=== PATIENT | male | born 1995 | race Caucasian/White ===

== ENCOUNTER 2017-11-26 14:49 | Inpatient (IN) | payer MEDICAID ==
[2017-11-26 14:57] VITALS: BMI 25.8
[2017-11-26] MEDS ORDERED: Sodium Chloride 0.9% 1,000 ML IV STA (15:52)
[2017-11-26] MEDS ORDERED: Morphine 4 MG/ML VIAL IVP STA (16:07)
--- NOTE | 2017-11-26 16:09 | ED PDOC ---
HPI: Abdomen Chief Complaint (Provider): abdominal pain History Per: Patient Onset/Duration Of Symptoms: Days Outside of [place] travel?: No Current Symptoms Are (Timing): Still Present Context: Food Severity: Severe Pain Scale Rating Of: 10 Location Of Pain/Discomfort: Diffuse, RUQ, Epigastric Quality Of Discomfort: Sharp Associated Symptoms: Diarrhea. denies: Fever, Chills, Nausea, Vomiting Exacerbating Factors: Movement Alleviating Factors: None <Elizabeth Redman - Last Filed: 11/26/17 19:45> <Smiley Mclaughlin - Last Filed: 11/27/17 15:47> Time Seen by Provider: 11/26/17 15:17 Chief Complaint (Nursing): Abdominal Pain Additional Complaint(s): 22 yo M with pmh migraines presented to ED with complaint of abdominal pain x2 days. Describes the pain as sharp/stabbing, and rates it 10/10. Pain starts in epigastric area and radiates to RUQ and down to umbilicus; has pain in LLQ and RLQ as well but milder. Pt states pain started after he ate greasy food and drank 1 [employer] Hard Lemonade 2 days ago; has history of abdominal pain with greasy foods but it is usually self limiting. Denies alcohol abuse; states he only drinks oscar[employer] hard lemonade, and a 6 pack lasts him 2-3 weeks. Denies nausea, vomiting, chills, fever. ROS positive for diarrhea- pt reports 3 weeks of 5 watery stools/day. No recent antibiotic use, no recent travel. 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; wisdom teeth; tonsillectomy Social hx: denies tobacco and any drug use; alcohol use as above Fam hx: noncontributory Meds: no chronic medications Allergies: nkda (Elizabeth Redman) Supervising Attending Note <Elizabeth Redman - Last Filed: 11/26/17 19:45> - Supervising Attending Note The Documented history was done by the: Physician Retail Store Clerk, Attending Physician The documented physical exam was done by the: Physician Retail Store Clerk, Attending Physician - Attestation: I have personally seen and examined this patient.: Yes I have fully participated in the care of the patient.: Yes I have reviewed all pertinent clinical information: Yes <Smiley Mclaughlin - Last Filed: 11/27/17 15:47> - Notes: Notes:: Abd pain localized from upper abdomen to lower abdomen with obturator, psoas signs. Neg rebound. CT demonstrated appendicitis. IV antibiotics ordered. JOEY Shen Surgery. JOEY pt findings and plan of care. Hospitalize for surgical intervention. (Smiley Mclaughlin) Past Medical History Reviewed: Nursing Documentation, Vital Signs - Medical History PMH: Asthma, Migraine - Surgical History Surgical History: Tonsillectomy Other surgeries: wisdom teeth; bone surg on L hand - Family History Family History: States: Unknown Family Hx - Living Arrangements Living Arrangements: With Family - Social History Alcohol: < 2 Drinks/Day Drugs: Denies <Elizabeth Redman - Last Filed: 11/26/17 19:45> <Smiley Mclaughlin - Last Filed: 11/27/17 15:47> Vital Signs: Last Vital Signs Temp 98.2 F 11/27/17 08:26 Pulse 62 11/27/17 08:26 Resp 19 11/27/17 08:26 BP 110/71 11/27/17 08:26 Pulse Ox 99 11/27/17 08:26 - Home Medications Home Medications: Ambulatory Orders Medication Instructions Recorded Amoxicillin/Clavulanate [Augmentin 1 tab PO DAILY #7 tab 11/27/17 500 MG-125 MG] oxyCODONE/Acetaminophen [Percocet 1 tab PO Q4 PRN #30 tab 11/27/17 5/325 mg Tab] - Allergies Allergies/Adverse Reactions: Allergies Allergy/AdvReac Type Severity Reaction Status Date / Time No Known Allergies Allergy Verified 12/16/15 18:50 Review of Systems ROS Statement: Except As Marked, All Systems Reviewed And Found Negative Gastrointestinal: Positive for: Abdominal Pain, Diarrhea <Elizabeth Redman - Last Filed: 11/26/17 19:45> Physical Exam - Physical Exam Appears: Positive for: Uncomfortable Head Exam: Positive for: ATRAUMATIC Skin: Positive for: Normal Color, Warm, Dry Eye Exam: Positive for: EOMI, PERRL ENT: Positive for: Pharynx Is (clear). Negative for: Tonsillar Exudate Neck: Positive for: Supple Cardiovascular/Chest: Positive for: Regular Rate, Rhythm, Chest Non Tender Respiratory: Positive for: Normal Breath Sounds. Negative for: Accessory Muscle Use, Respiratory Distress Gastrointestinal/Abdominal: Positive for: Bowel Sounds, Soft, Tenderness ( epigastric, RUQ), Guarding Extremity: Positive for: Capillary Refill (less than 2 sec). Negative for: Pedal Edema, Deformity Neurologic/Psych: Positive for: Alert, Oriented <Elizabeth Redman - Last Filed: 11/26/17 19:45> - Laboratory Results Result Diagrams: 11/26/17 16:15 11/26/17 16:15 - ECG O2 Sat by Pulse Oximetry: 99 <Elizabeth Redman - Last Filed: 11/26/17 19:45> - Laboratory Results Result Diagrams: 11/27/17 06:00 11/26/17 16:15 <Smiley Mclaughlin - Last Filed: 11/27/17 15:47> Medical Decision Making <Elizabeth Redman - Last Filed: 11/26/17 19:45> <Smiley Mclaughlin - Last Filed: 11/27/17 15:47> Medical Decision Making: differential includes cholecystitis, appendicitis, pancreatitis, gastritis - CBC - CMP - PT/PTT/INR - Lipase - LDH - IV NS bolus - Urine drug screen - Toradol IV - CT abdomen w/ IV contrast When pt was evaluated by Dr. Mclaughlin after he went to bathroom to give urine sample, he complained that the pain was now more in the RLQ than epigastric. Had positive obturator and psoas signs. - Morphine ordered for pain. CT abdomen consistent with appendicitis without rupture. - Surgery consult - Dr. Shen. - Zosyn started and blood culture ordered. (Elizabeth Redman) Disposition - Patient ED Disposition Is Patient to be Admitted: Yes - Disposition Disposition Time: 18:47 - Pt Status Changed To: Hospital Disposition Of: Inpatient - Admit Certification Admit to Inpatient:: After my assessment, the patient will require hospitalization for at least two midnights. This is because of the severity of symptoms shown, intensity of services needed, and/or the medical risk in this patient being treated as an outpatient. <Elizabeth Redman - Last Filed: 11/26/17 19:45> <Smiley Mclaughlin - Last Filed: 11/27/17 15:47> - Clinical Impression Clinical Impression: Acute appendicitis - Disposition Condition: STABLE
[2017-11-26 16:24] LABS: BASO # 0.1 K/uL (0.0-0.2); BASO % 0.4 % (0.0-2.0); EOS # 0.2 K/uL (0.0-0.7); EOS % 1.4 % (0.0-4.0); HEMOGLOBIN 14.5 g/dL (12.0-18.0); LYMPH # 2.3 K/uL (1.0-4.3); LYMPH % 17.3 % (20.0-40.0); MEAN CELL VOLUME 86.6 fl (80.0-94.0); MEAN CORPUSCULAR HEMOGLOBIN 29.4 pg (27.0-31.0); MEAN PLATELET VOLUME 8.3 fl (7.2-11.7); MONO # 1.1 K/uL (0.0-0.8); NEUT # 9.8 K/uL (1.8-7.0); NEUT % 72.9 % (50.0-75.0); RBC 4.92 Mil/uL (4.40-5.90); RED CELL DISTRIBUTION WIDTH 12.5 % (11.5-14.5); WHITE BLOOD COUNT 13.5 K/uL (4.8-10.8)
[2017-11-26 16:32] LABS: BARBITURATES, UR NEGATIVE (NEGATIVE); BENZODIAZEPINES, UR NEGATIVE (NEGATIVE); OPIATES, UR NEGATIVE (NEGATIVE); PHENCYCLIDINE, UR NEGATIVE (NEGATIVE)
[2017-11-26 16:32] LABS: ALB/GLOB RATIO 1.5 (1.0-2.1); ALBUMIN 4.6 g/dL (3.5-5.0); ALT/SGPT 34 U/L (21-72); AST/SGOT 24 U/L (17-59); BLOOD UREA NITROGEN 6 mg/dl (9-20); CALCIUM 9.4 mg/dL (8.4-10.2); GFR AFRICAN-AMERICAN > 60; GFR NON-AFRICAN AMERICAN > 60; LIPASE 76 U/L (23-300)
[2017-11-26 16:34] LABS: INR 1.1 (0.9-1.2); PARTIAL THROMBOPLASTIN TIME 31.2 Seconds (25.6-37.1); PROTHROMBIN TIME 12.1 Seconds (9.8-13.1)
[2017-11-26] MEDS ORDERED: Sodium Chloride 0.9% 50 ML IV ONE (16:43)
[2017-11-26] MEDS ORDERED: Iohexol 300 100 ML IJ ONE (16:43)
[2017-11-26] MEDS ORDERED: Piperacillin/Tazobact 3.375 GM in Sodium Chloride 0.9% 100 ML IVPB STA (17:20)
--- NOTE | 2017-11-26 17:26 | CT ---
Date of service: 11/26/2017 PROCEDURE: CT Abdomen and Pelvis with contrast HISTORY: abd pain r/o appendicitis COMPARISON: None. TECHNIQUE: Following the intravenous administration of iodinated contrast material, a CT examination of the abdomen and pelvis performed from the domes of the diaphragms to the symphysis pubis with reformatted datasets provided in axial, sagittal and coronal planes. Oral contrast was not administered as per referring physician request. Contrast dose: Omnipaque 300, 95 cc. Radiation dose: Total exam DLP = 338.29 mGy-cm. This CT exam was performed using one or more of the following dose reduction techniques: Automated exposure control, adjustment of the mA and/or kV according to patient size, and/or use of iterative reconstruction technique. FINDINGS: LOWER THORAX: Unremarkable. LIVER: Unremarkable. No gross lesion or ductal dilatation. GALLBLADDER AND BILE DUCTS: Unremarkable. PANCREAS: Unremarkable. No gross lesion or ductal dilatation. SPLEEN: Unremarkable. ADRENALS: Unremarkable. No mass. KIDNEYS AND URETERS: Unremarkable. No hydronephrosis. No solid mass. VASCULATURE: Unremarkable. No aortic aneurysm. BOWEL: Stomach is collapsed. No pattern of bowel obstruction however the appendix appears distended with mural thickening and gpro-bm-diktafdd periappendiceal reaction. The appendix measures up to 11 mm greatest transverse diameter with a pattern compatible with appendicitis without CT sign of rupture. APPENDIX: Normal appendix. PERITONEUM: Unremarkable. No free fluid. No free air. LYMPH NODES: Unremarkable. No enlarged lymph nodes. BLADDER: Unremarkable. REPRODUCTIVE: Unremarkable. BONES: No acute fracture. OTHER FINDINGS: None. IMPRESSION: 1. Findings compatible with appendicitis without CT sign of rupture. Surgical consultation recommended. 2. No additional acute abdominal or pelvic findings. Findings discussed with Dr. Mclaughlin with written down and read back verification, 11/26/2017 05:21 p.m..
[2017-11-26] MEDS ORDERED: Piperacillin/Tazobact 3.375 gm Inj IVPB ONE (17:29)
[2017-11-26 17:53] LABS: VENOUS BLOOD GAS BASE EXCESS 1.7 mmol/L (0.0-2.0); VENOUS BLOOD GAS PCO2 51 mmHg (40-60); VENOUS BLOOD GAS PO2 22 mm/Hg (30-55); VENOUS BLOOD PH 7.35 (7.32-7.43)
--- NOTE | 2017-11-26 18:42 | CP.PCM.CON ---
<Aye Adams - Last Filed: 11/26/17 18:58> History of Present Illness - History of Present Illness History of Present Illness: General Surgery Dr. Shen 22 y/o M w/ PMHx of asthma presents to the ED c/o abd pain. Pt reports epigastric abd pain started 2days ago that acutely worsened today. Pain has also shifted from only epigastric to include leslie-unbilical/RLQ. Pain worsened by BM. Pt tried Advil w/ no relief of pain. Pt has never had this pain in the past. Pt also admits to diarrhea x1mon. Pt denies F/C, N/V, hematochezia, melenia, hematemesis. PMHx: asthma Meds: reviewed in chart NKDA PSHx: bone graft to Luis sarabia for benign tumor, tonsillectomy, wisdom tooth extraction SHx: denies tobacco, drug use. social EtOH FHx: noncontributory Review of Systems - Review of Systems All systems: reviewed and no additional remarkable complaints except (see HPI) Past Patient History - Infectious Disease Hx of Infectious Diseases: None - Past Social History Alcohol: < 2 Drinks/Day Drugs: Denies - CARDIAC Hx Cardiac Disorders: No - PULMONARY Hx Asthma: Yes - NEUROLOGICAL Hx Migraine: Yes - HEENT Hx HEENT Problems: No - MUSCULOSKELETAL/RHEUMATOLOGICAL Hx Musculoskeletal Disorders: Yes - PSYCHIATRIC Hx Substance Use: No - SURGICAL HISTORY Hx Tonsillectomy: Yes - ANESTHESIA Hx Anesthesia: Yes Hx Anesthesia Reactions: No Meds Allergies/Adverse Reactions: Allergies Allergy/AdvReac Type Severity Reaction Status Date / Time No Known Allergies Allergy Verified 12/16/15 18:50 Physical Exam - Constitutional Appears: Non-toxic, No Acute Distress - Head Exam Head Exam: NORMAL INSPECTION - Eye Exam Eye Exam: Normal appearance - ENT Exam ENT Exam: Mucous Membranes Moist - Respiratory Exam Respiratory Exam: Clear to Auscultation Bilateral, NORMAL BREATHING PATTERN. absent: Accessory Muscle Use, Respiratory Distress - Cardiovascular Exam Cardiovascular Exam: Bradycardia, Tachycardia, REGULAR RHYTHM - GI/Abdominal Exam GI & Abdominal Exam: Guarding (voluntary), Soft, Tenderness (RLQ TTP). absent: Distended - Extremities Exam Extremities exam: Positive for: normal inspection - Neurological Exam Neurological exam: Alert, Oriented x3 - Psychiatric Exam Psychiatric exam: Normal Affect, Normal Mood - Skin Skin Exam: Dry, Intact, Normal Color, Warm Additional comments: healed scar present over L ASIS Results - Vital Signs Recent Vital Signs: Last Vital Signs Temp 99.3 F 11/26/17 18:31 Pulse 73 11/26/17 18:31 Resp 16 11/26/17 18:31 BP 119/65 11/26/17 18:31 Pulse Ox 97 11/26/17 18:31 - Labs Result Diagrams: 11/26/17 16:15 11/26/17 16:15 Labs: Laboratory Results - last 24 hr 11/26/17 11/26/17 11/26/17 16:00 16:15 16:15 WBC 13.5 H RBC 4.92 Hgb 14.5 Hct 42.6 MCV 86.6 MCH 29.4 MCHC 34.0 RDW 12.5 Plt Count 254 MPV 8.3 Neut % (Auto) 72.9 Lymph % (Auto) 17.3 L [place] % (Auto) 8.0 Eos % (Auto) 1.4 Baso % (Auto) 0.4 Neut # (Auto) 9.8 H Lymph # (Auto) 2.3 [place] # (Auto) 1.1 H Eos # (Auto) 0.2 Baso # (Auto) 0.1 PT INR APTT pO2 VBG pH VBG pCO2 VBG HCO3 VBG Total CO2 VBG O2 Sat (Calc) VBG Base Excess VBG Potassium Glucose Lactate FiO2 Sodium 142 Potassium 3.5 L Chloride 102 Carbon Dioxide 30 Anion Gap 14 BUN 6 L Creatinine 0.6 L Est GFR ( Amer) > 60 Est GFR (Non-Af Amer) > 60 Random Glucose 92 Calcium 9.4 Total Bilirubin 1.2 AST 24 ALT 34 Alkaline Phosphatase 78 Lactate Dehydrogenase 365 Total Protein 7.6 Albumin 4.6 Globulin 3.0 Albumin/Globulin Ratio 1.5 Lipase 76 Venous Blood Potassium Urine Opiates Screen Negative Urine Methadone Screen Negative Ur Barbiturates Screen Negative Ur Phencyclidine Scrn Negative Ur Amphetamines Screen Negative U Benzodiazepines Scrn Negative U Oth Cocaine Metabols Negative U Cannabinoids Screen Negative 11/26/17 11/26/17 16:15 17:48 WBC RBC Hgb Hct MCV MCH MCHC RDW Plt Count MPV Neut % (Auto) Lymph % (Auto) [place] % (Auto) Eos % (Auto) Baso % (Auto) Neut # (Auto) Lymph # (Auto) [place] # (Auto) Eos # (Auto) Baso # (Auto) PT 12.1 INR 1.1 APTT 31.2 pO2 22 L VBG pH 7.35 VBG pCO2 51 VBG HCO3 24.5 VBG Total CO2 29.8 H VBG O2 Sat (Calc) 47.2 VBG Base Excess 1.7 VBG Potassium 3.5 L Glucose 90 Lactate 0.7 FiO2 21.0 Sodium 137.0 Potassium Chloride 105.0 Carbon Dioxide Anion Gap BUN Creatinine Est GFR ( Amer) Est GFR (Non-Af Amer) Random Glucose Calcium Total Bilirubin AST ALT Alkaline Phosphatase Lactate Dehydrogenase Total Protein Albumin Globulin Albumin/Globulin Ratio Lipase Venous Blood Potassium 3.5 L Urine Opiates Screen Urine Methadone Screen Ur Barbiturates Screen Ur Phencyclidine Scrn Ur Amphetamines Screen U Benzodiazepines Scrn U Oth Cocaine Metabols U Cannabinoids Screen - Imaging and Cardiology CT scan - abdomen Status: Image reviewed by me, Report reviewed by me Assessment & Plan - Assessment and Plan (Free Text) Assessment: 22 y/o M w/ abd pain 2/2 acute appendicitis - NPO/IVF - IV Abx - pain management - anti-emetic - OR this evening for laparoscopic appendectomy - encourage OOB to chair/Amb/IS use - SCDs while in bed Pt discussed w/ Dr. Ac Adams DO PGY3 <Mark Anthony Shen - Last Filed: 11/26/17 19:07> History of Present Illness - History of Present Illness History of Present Illness: Patient was seen and examined at the bedside. Agree with resident's note above. Physical Exam - GI/Abdominal Exam Additional comments: soft, lower abdominal tenderness, ND, BS+, no rebound, voluntary guarding Results - Vital Signs Recent Vital Signs: Last Vital Signs Temp 99.3 F 11/26/17 18:31 Pulse 73 11/26/17 18:31 Resp 16 11/26/17 18:31 BP 119/65 11/26/17 18:31 Pulse Ox 99 11/26/17 18:49 - Labs Result Diagrams: 11/26/17 16:15 11/26/17 16:15 Labs: Laboratory Results - last 24 hr 11/26/17 11/26/17 11/26/17 16:00 16:15 16:15 WBC 13.5 H RBC 4.92 Hgb 14.5 Hct 42.6 MCV 86.6 MCH 29.4 MCHC 34.0 RDW 12.5 Plt Count 254 MPV 8.3 Neut % (Auto) 72.9 Lymph % (Auto) 17.3 L [place] % (Auto) 8.0 Eos % (Auto) 1.4 Baso % (Auto) 0.4 Neut # (Auto) 9.8 H Lymph # (Auto) 2.3 [place] # (Auto) 1.1 H Eos # (Auto) 0.2 Baso # (Auto) 0.1 PT INR APTT pO2 VBG pH VBG pCO2 VBG HCO3 VBG Total CO2 VBG O2 Sat (Calc) VBG Base Excess VBG Potassium Glucose Lactate FiO2 Sodium 142 Potassium 3.5 L Chloride 102 Carbon Dioxide 30 Anion Gap 14 BUN 6 L Creatinine 0.6 L Est GFR ( Amer) > 60 Est GFR (Non-Af Amer) > 60 Random Glucose 92 Calcium 9.4 Total Bilirubin 1.2 AST 24 ALT 34 Alkaline Phosphatase 78 Lactate Dehydrogenase 365 Total Protein 7.6 Albumin 4.6 Globulin 3.0 Albumin/Globulin Ratio 1.5 Lipase 76 Venous Blood Potassium Urine Opiates Screen Negative Urine Methadone Screen Negative Ur Barbiturates Screen Negative Ur Phencyclidine Scrn Negative Ur Amphetamines Screen Negative U Benzodiazepines Scrn Negative U Oth Cocaine Metabols Negative U Cannabinoids Screen Negative 11/26/17 11/26/17 16:15 17:48 WBC RBC Hgb Hct MCV MCH MCHC RDW Plt Count MPV Neut % (Auto) Lymph % (Auto) [place] % (Auto) Eos % (Auto) Baso % (Auto) Neut # (Auto) Lymph # (Auto) [place] # (Auto) Eos # (Auto) Baso # (Auto) PT 12.1 INR 1.1 APTT 31.2 pO2 22 L VBG pH 7.35 VBG pCO2 51 VBG HCO3 24.5 VBG Total CO2 29.8 H VBG O2 Sat (Calc) 47.2 VBG Base Excess 1.7 VBG Potassium 3.5 L Glucose 90 Lactate 0.7 FiO2 21.0 Sodium 137.0 Potassium Chloride 105.0 Carbon Dioxide Anion Gap BUN Creatinine Est GFR ( Amer) Est GFR (Non-Af Amer) Random Glucose Calcium Total Bilirubin AST ALT Alkaline Phosphatase Lactate Dehydrogenase Total Protein Albumin Globulin Albumin/Globulin Ratio Lipase Venous Blood Potassium 3.5 L Urine Opiates Screen Urine Methadone Screen Ur Barbiturates Screen Ur Phencyclidine Scrn Ur Amphetamines Screen U Benzodiazepines Scrn U Oth Cocaine Metabols U Cannabinoids Screen
[2017-11-26] MEDS ORDERED: Succinylcholine 200 mg/10 ml Inj IV ONE (18:50)
[2017-11-26] MEDS ORDERED: Lidocaine 4% (Laryng-O-Jet) Kit MM ONE (18:50)
[2017-11-26] MEDS ORDERED: Lidocaine 1% 5ml Abboject IV ONE (18:50)
[2017-11-26] MEDS ORDERED: Midazolam 2 MG/2 ML VIAL ONE (18:50)
[2017-11-26] MEDS ORDERED: Propofol 10 mg/ml Inj (20 ML) ONE (18:50)
[2017-11-26] MEDS ORDERED: Neostigmine 1:1000 (1 mg/ml) Inj ONE (18:51)
[2017-11-26] MEDS ORDERED: Rocuronium 10 mg/ml (5 ml) ONE (18:51)
[2017-11-26] MEDS ORDERED: Sevoflurane - Inhalation Anesthetic Liq (250 ml) ONE (18:53)
[2017-11-26] MEDS ORDERED: Lactated Ringer's 1,000 ML IV ONE (19:07)
[2017-11-26] MEDS: Bupivacaine HCl 0.25% PF (30 ml) Inj ONE ×2 (19:31→19:55)
[2017-11-26] MEDS ORDERED: Oxycodone/Acetaminophen 5/325 mg Tab PO PRN ×2 (20:12)
--- NOTE | 2017-11-26 20:12 | PCM.SURG1 ---
Surgeon's Initial Post Op Note - Surgeon's Notes Surgeon: Dr. Shen Classified Ad Taker: Dr. Adams PGY3 Type of Anesthesia: General Endo Pre-Operative Diagnosis: acute appendicitis Operative Findings: see dictation Post-Operative Diagnosis: same Operation Performed: laparoscopic appendectomy Specimen/Specimens Removed: appendix Estimated Blood Loss: EBL {In ML}: 5 Blood Products Given: N/A Drains Used: No Drains Post-Op Condition: Good Date of Surgery/Procedure: 11/26/17 Time of Surgery/Procedure: 20:12
[2017-11-26] MEDS ORDERED: Piperacillin/Tazobact 3.375 GM in Sodium Chloride 0.9% 100 ML IVPB SCH (22:00)
[2017-11-26] MEDS: Lactated Ringer's 1,000 ML IV SCH (23:26)
[2017-11-27] MEDS: Piperacillin/Tazobact 3.375 GM in Sodium Chloride 0.9% 100 ML IVPB SCH ×2 (06:16)
[2017-11-27] MEDS: Lactated Ringer's 1,000 ML IV SCH (06:18)
[2017-11-27 06:42] VITALS: O2SAT 99
--- NOTE | 2017-11-27 07:01 | CP.PCM.HP ---
History of Present Illness - History of Present Illness History of Present Illness: pt admitted for acute ap. s/p lap appy and is doing well. no f/c, n/v/d. 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 all bw and imaging noted. consult notes appriciated. at present c/o soreness and tightness w/ breath. wants to walk. am labs pending. neel po denies med hx, surg hx wisdom teeth, t &a, left 5th digit hand bone transplant Present on Admission - Present on Admission Any Indicators Present on Admission: No Review of Systems - Gastrointestinal Gastrointestinal: As Per HPI, Abdominal Pain Past Patient History - Infectious Disease Hx of Infectious Diseases: None - Past Social History Alcohol: < 2 Drinks/Day Drugs: Denies - CARDIAC Hx Cardiac Disorders: No - PULMONARY Hx Asthma: Yes - NEUROLOGICAL Hx Migraine: Yes - HEENT Hx HEENT Problems: No - MUSCULOSKELETAL/RHEUMATOLOGICAL Hx Musculoskeletal Disorders: Yes - PSYCHIATRIC Hx Substance Use: No - SURGICAL HISTORY Hx Tonsillectomy: Yes - ANESTHESIA Hx Anesthesia: Yes Hx Anesthesia Reactions: No Meds Home Medications: Home Medication List Medication Instructions Recorded Confirmed Type Amoxicillin/Clavulanate [Augmentin 1 tab PO DAILY #7 tab 11/27/17 Rx 500 MG-125 MG] oxyCODONE/Acetaminophen [Percocet 1 tab PO Q4 PRN #30 tab 11/27/17 Rx 5/325 mg Tab] Allergies/Adverse Reactions: Allergies Allergy/AdvReac Type Severity Reaction Status Date / Time No Known Allergies Allergy Verified 12/16/15 18:50 Physical Exam - Constitutional Appears: Well, Non-toxic, No Acute Distress - Head Exam Head Exam: ATRAUMATIC, NORMAL INSPECTION, NORMOCEPHALIC - Eye Exam Eye Exam: EOMI, Normal appearance, PERRL Pupil Exam: NORMAL ACCOMODATION, PERRL - ENT Exam ENT Exam: Mucous Membranes Moist, Normal Exam - Neck Exam Neck exam: Positive for: Normal Inspection - Respiratory Exam Respiratory Exam: Clear to Auscultation Bilateral, NORMAL BREATHING PATTERN - Cardiovascular Exam Cardiovascular Exam: REGULAR RHYTHM, RRR, +S1, +S2 - GI/Abdominal Exam GI & Abdominal Exam: Normal Bowel Sounds, Soft. absent: Tenderness - Extremities Exam Extremities exam: Positive for: full ROM, normal capillary refill, normal inspection, pedal pulses present - Back Exam Back exam: NORMAL INSPECTION - Neurological Exam Neurological exam: Alert, CN II-XII Intact, Normal Gait, Oriented x3, Reflexes Normal - Psychiatric Exam Psychiatric exam: Normal Affect, Normal Mood - Skin Skin Exam: Dry, Intact, Normal Color, Warm Results - Vital Signs Recent Vital Signs: Last Vital Signs Temp 98.1 F 11/27/17 05:00 Pulse 70 11/27/17 05:00 Resp 18 11/27/17 05:00 BP 121/68 11/27/17 05:00 Pulse Ox 99 11/27/17 05:00 - Labs Result Diagrams: 11/26/17 16:15 11/26/17 16:15 Labs: Laboratory Results - last 24 hr 11/26/17 11/26/17 11/26/17 16:00 16:15 16:15 WBC 13.5 H RBC 4.92 Hgb 14.5 Hct 42.6 MCV 86.6 MCH 29.4 MCHC 34.0 RDW 12.5 Plt Count 254 MPV 8.3 Neut % (Auto) 72.9 Lymph % (Auto) 17.3 L [place] % (Auto) 8.0 Eos % (Auto) 1.4 Baso % (Auto) 0.4 Neut # (Auto) 9.8 H Lymph # (Auto) 2.3 [place] # (Auto) 1.1 H Eos # (Auto) 0.2 Baso # (Auto) 0.1 PT INR APTT pO2 VBG pH VBG pCO2 VBG HCO3 VBG Total CO2 VBG O2 Sat (Calc) VBG Base Excess VBG Potassium Glucose Lactate FiO2 Sodium 142 Potassium 3.5 L Chloride 102 Carbon Dioxide 30 Anion Gap 14 BUN 6 L Creatinine 0.6 L Est GFR ( Amer) > 60 Est GFR (Non-Af Amer) > 60 Random Glucose 92 Calcium 9.4 Total Bilirubin 1.2 AST 24 ALT 34 Alkaline Phosphatase 78 Lactate Dehydrogenase 365 Total Protein 7.6 Albumin 4.6 Globulin 3.0 Albumin/Globulin Ratio 1.5 Lipase 76 Venous Blood Potassium Urine Opiates Screen Negative Urine Methadone Screen Negative Ur Barbiturates Screen Negative Ur Phencyclidine Scrn Negative Ur Amphetamines Screen Negative U Benzodiazepines Scrn Negative U Oth Cocaine Metabols Negative U Cannabinoids Screen Negative 11/26/17 11/26/17 16:15 17:48 WBC RBC Hgb Hct MCV MCH MCHC RDW Plt Count MPV Neut % (Auto) Lymph % (Auto) [place] % (Auto) Eos % (Auto) Baso % (Auto) Neut # (Auto) Lymph # (Auto) [place] # (Auto) Eos # (Auto) Baso # (Auto) PT 12.1 INR 1.1 APTT 31.2 pO2 22 L VBG pH 7.35 VBG pCO2 51 VBG HCO3 24.5 VBG Total CO2 29.8 H VBG O2 Sat (Calc) 47.2 VBG Base Excess 1.7 VBG Potassium 3.5 L Glucose 90 Lactate 0.7 FiO2 21.0 Sodium 137.0 Potassium Chloride 105.0 Carbon Dioxide Anion Gap BUN Creatinine Est GFR ( Amer) Est GFR (Non-Af Amer) Random Glucose Calcium Total Bilirubin AST ALT Alkaline Phosphatase Lactate Dehydrogenase Total Protein Albumin Globulin Albumin/Globulin Ratio Lipase Venous Blood Potassium 3.5 L Urine Opiates Screen Urine Methadone Screen Ur Barbiturates Screen Ur Phencyclidine Scrn Ur Amphetamines Screen U Benzodiazepines Scrn U Oth Cocaine Metabols U Cannabinoids Screen Assessment & Plan (1) DVT prophylaxis Assessment and Plan: ambulation scd nad ae hose Status: Acute (2) Acute appendicitis Assessment and Plan: pod 1 lap appy pain control po as neel surgery ?? dc today zosyn Status: Acute Decision To Admit - Pt Status Changed To: Hospital Disposition Of: Inpatient - Admit Certification Admit to Inpatient:: After my assessment, the patient will require hospitalization for at least two midnights. This is because of the severity of symptoms shown, intensity of services needed, and/or the medical risk in this patient being treated as an outpatient. - . Bed Request Type: Med/Surg Admitting Physician: Tahmina Paulson
--- NOTE | 2017-11-27 07:22 | CP.PCM.PN ---
Subjective - Date & Time of Evaluation Date of Evaluation: 11/27/17 Time of Evaluation: 07:18 - Subjective Subjective: General Surgery Dr. Shen Pt S&E @bedside. Pt s/p lap appy last evening. Pt tolerated procedure well w/ no complications. Pt c/o abd pain, sore throat, and dysuria s/p intra-op garzon placement. Pt denies F/C, N/V. tolerating CLD. Objective - Vital Signs/Intake and Output Vital Signs (last 24 hours): Temp Pulse Resp BP Pulse Ox 98.1 F 70 18 121/68 99 11/27/17 05:00 11/27/17 05:00 11/27/17 05:00 11/27/17 05:00 11/27/17 05:00 Intake and Output: 11/27/17 11/27/17 06:59 18:59 Intake Total 800 Output Total 200 Balance 600 - Medications Medications: Current Medications Famotidine (Pepcid) 20 mg IVP STAT STA Stop: 11/27/17 07:16 Lactated Ringer's (Lactated Ringer's) 1,000 mls @ 100 mls/hr IV .Q10H DOMENICO Last Admin: 11/27/17 06:18 Dose: Not Given Piperacillin Sod/Tazobactam (Sod 3.375 gm/ Sodium Chloride) 100 mls @ 100 mls/ hr IVPB 0000,0600,1200,1800 DOMENICO PRN Reason: Protocol Last Admin: 11/27/17 06:16 Dose: 100 mls/hr Morphine Sulfate (Morphine) 4 mg IVP Q4 PRN PRN Reason: Pain, severe (8-10) Last Admin: 11/27/17 04:37 Dose: 4 mg Ondansetron HCl (Zofran Inj) 4 mg IVP Q4 PRN PRN Reason: Nausea/Vomiting Oxycodone/Acetaminophen (Percocet 5/325 Mg Tab) 1 tab PO Q4 PRN PRN Reason: Pain, Mild (1-3) Stop: 11/29/17 20:13 Oxycodone/Acetaminophen (Percocet 5/325 Mg Tab) 2 tab PO Q4 PRN PRN Reason: Pain, moderate (4-7) Stop: 11/29/17 20:13 - Labs Labs: 11/26/17 16:15 11/26/17 16:15 PT 12.1 Seconds (9.8-13.1) 11/26/17 16:15 INR 1.1 (0.9-1.2) 11/26/17 16:15 APTT 31.2 Seconds (25.6-37.1) 11/26/17 16:15 - Constitutional Appears: Non-toxic, No Acute Distress - Head Exam Head Exam: NORMAL INSPECTION - Eye Exam Eye Exam: Normal appearance - ENT Exam ENT Exam: Mucous Membranes Moist - Respiratory Exam Respiratory Exam: NORMAL BREATHING PATTERN. absent: Accessory Muscle Use, Respiratory Distress - Cardiovascular Exam Cardiovascular Exam: REGULAR RHYTHM. absent: Bradycardia, Tachycardia - GI/Abdominal Exam GI & Abdominal Exam: Guarding (voluntary), Soft, Tenderness (leslie-incisional TTP ). absent: Distended, Rebound Additional comments: incisions c/d/i glue in place - Extremities Exam Extremities Exam: Normal Inspection - Neurological Exam Neurological Exam: Alert, Awake, Oriented x3 - Psychiatric Exam Psychiatric exam: Normal Affect, Normal Mood - Skin Skin Exam: Dry, Intact, Normal Color, Warm Assessment and Plan - Assessment and Plan (Free Text) Assessment: 22 y/o M POD#1 s/p lap appendectomy - cont Abx - pain management - ADAT - f/u AM labs - encourage OOB to chair/Amb/IS use - cleared for D/C pending diet tolerance and resolved leukocytosis Pt discussed w/ Dr. Ac Adams DO PGY3
[2017-11-27 07:36] LABS: HEMOGLOBIN 13.5 g/dL (12.0-18.0); MEAN CELL VOLUME 87.5 fl (80.0-94.0); MEAN CORPUSCULAR HEMOGLOBIN 29.4 pg (27.0-31.0); MEAN CORPUSCULAR HGB CONC 33.6 g/dL (33.0-37.0); RBC 4.6 Mil/uL (4.40-5.90); RED CELL DISTRIBUTION WIDTH 12.7 % (11.5-14.5); WHITE BLOOD COUNT 10.9 K/uL (4.8-10.8)
[2017-11-27 08:27] VITALS: BP 110/71; PULSE 62; RESP 19; TEMP 98.2
--- NOTE | 2017-11-27 10:38 | CP.PCM.DIS ---
Provider - Provider Date of Admission: 11/26/17 17:23 Attending physician: Tahmina Paulson MD Time Spent in preparation of Discharge (in minutes): 15 Diagnosis - Discharge Diagnosis (1) DVT prophylaxis Status: Acute (2) Acute appendicitis Status: Acute Hospital Course - Lab Results Lab Results: Most Recent Lab Values WBC 10.9 K/uL (4.8-10.8) H 11/27/17 06:00 RBC 4.60 Mil/uL (4.40-5.90) 11/27/17 06:00 Hgb 13.5 g/dL (12.0-18.0) 11/27/17 06:00 Hct 40.3 % (35.0-51.0) 11/27/17 06:00 MCV 87.5 fl (80.0-94.0) 11/27/17 06:00 MCH 29.4 pg (27.0-31.0) 11/27/17 06:00 MCHC 33.6 g/dL (33.0-37.0) 11/27/17 06:00 RDW 12.7 % (11.5-14.5) 11/27/17 06:00 Plt Count 247 K/uL (130-400) 11/27/17 06:00 MPV 8.3 fl (7.2-11.7) 11/26/17 16:15 Neut % (Auto) 72.9 % (50.0-75.0) 11/26/17 16:15 Lymph % (Auto) 17.3 % (20.0-40.0) L 11/26/17 16:15 Traverse % (Auto) 8.0 % (0.0-10.0) 11/26/17 16:15 Eos % (Auto) 1.4 % (0.0-4.0) 11/26/17 16:15 Baso % (Auto) 0.4 % (0.0-2.0) 11/26/17 16:15 Neut # (Auto) 9.8 K/uL (1.8-7.0) H 11/26/17 16:15 Lymph # (Auto) 2.3 K/uL (1.0-4.3) 11/26/17 16:15 Traverse # (Auto) 1.1 K/uL (0.0-0.8) H 11/26/17 16:15 Eos # (Auto) 0.2 K/uL (0.0-0.7) 11/26/17 16:15 Baso # (Auto) 0.1 K/uL (0.0-0.2) 11/26/17 16:15 PT 12.1 Seconds (9.8-13.1) 11/26/17 16:15 INR 1.1 (0.9-1.2) 11/26/17 16:15 APTT 31.2 Seconds (25.6-37.1) 11/26/17 16:15 pO2 22 mm/Hg (30-55) L 11/26/17 17:48 VBG pH 7.35 (7.32-7.43) 11/26/17 17:48 VBG pCO2 51 mmHg (40-60) 11/26/17 17:48 VBG HCO3 24.5 mmol/L 11/26/17 17:48 VBG Total CO2 29.8 mmol/L (22-28) H 11/26/17 17:48 VBG O2 Sat (Calc) 47.2 % (40-65) 11/26/17 17:48 VBG Base Excess 1.7 mmol/L (0.0-2.0) 11/26/17 17:48 VBG Potassium 3.5 mmol/L (3.6-5.2) L 11/26/17 17:48 Sodium 137.0 mmol/L (132-148) 11/26/17 17:48 Chloride 105.0 mmol/L (98-107) 11/26/17 17:48 Glucose 90 mg/dL (75-110) 11/26/17 17:48 Lactate 0.7 mmol/L (0.7-2.1) 11/26/17 17:48 FiO2 21.0 % 11/26/17 17:48 Sodium 142 mmol/l (132-148) 11/26/17 16:15 Potassium 3.5 MMOL/L (3.6-5.0) L 11/26/17 16:15 Chloride 102 mmol/L (98-107) 11/26/17 16:15 Carbon Dioxide 30 mmol/L (22-30) 11/26/17 16:15 Anion Gap 14 (10-20) 11/26/17 16:15 BUN 6 mg/dl (9-20) L 11/26/17 16:15 Creatinine 0.6 mg/dl (0.8-1.5) L 11/26/17 16:15 Est GFR ( Amer) > 60 11/26/17 16:15 Est GFR (Non-Af Amer) > 60 11/26/17 16:15 Random Glucose 92 mg/dL (75-110) 11/26/17 16:15 Calcium 9.4 mg/dL (8.4-10.2) 11/26/17 16:15 Total Bilirubin 1.2 mg/dl (0.2-1.3) 11/26/17 16:15 AST 24 U/L (17-59) 11/26/17 16:15 ALT 34 U/L (21-72) 11/26/17 16:15 Alkaline Phosphatase 78 U/L (38-126) 11/26/17 16:15 Lactate Dehydrogenase 365 U/L (313-618) 11/26/17 16:15 Total Protein 7.6 G/DL (6.3-8.2) 11/26/17 16:15 Albumin 4.6 g/dL (3.5-5.0) 11/26/17 16:15 Globulin 3.0 gm/dL (2.2-3.9) 11/26/17 16:15 Albumin/Globulin Ratio 1.5 (1.0-2.1) 11/26/17 16:15 Lipase 76 U/L (23-300) 11/26/17 16:15 Venous Blood Potassium 3.5 mmol/L (3.6-5.2) L 11/26/17 17:48 Urine Opiates Screen Negative (NEGATIVE) 11/26/17 16:00 Urine Methadone Screen Negative (NEGATIVE) 11/26/17 16:00 Ur Barbiturates Screen Negative (NEGATIVE) 11/26/17 16:00 Ur Phencyclidine Scrn Negative (NEGATIVE) 11/26/17 16:00 Ur Amphetamines Screen Negative (NEGATIVE) 11/26/17 16:00 U Benzodiazepines Scrn Negative (NEGATIVE) 11/26/17 16:00 U Oth Cocaine Metabols Negative (NEGATIVE) 11/26/17 16:00 U Cannabinoids Screen Negative (NEGATIVE) 11/26/17 16:00 - Hospital Course Hospital Course: zosyn, lap appy, surgery f/u, pain control Discharge Exam - Head Exam Head Exam: NORMAL INSPECTION Discharge Plan - Discharge Medications Prescriptions: Amoxicillin/Clavulanate [Augmentin 500 MG-125 MG] 1 tab PO DAILY #7 tab oxyCODONE/Acetaminophen [Percocet 5/325 mg Tab] 1 tab PO Q4 PRN #30 tab PRN Reason: Pain, Moderate (4-7) - Follow Up Plan Condition: STABLE Disposition: HOME/ ROUTINE Instructions: Appendectomy, Laparoscopic Surgery, Surgical Wound (DC) Additional Instructions: Follow up w/ Dr. Shen in office in 7-10 days Take all medication as prescribed (scripts in chart) No heavy lifting for 3 weeks, otherwise activity as tolerated Pt may shower but do not scrub at incisions No pools, tubs, baths, ocean until seen in office Advance diet as tolerated Pt may take Tylenol/Advil for pain PRN Do not drive while taking narcotics Call Dr. Shen and/or return to the ED if fever >101, pain, redness, drainage, or rupture of incisions final dx- acute ap neel po. cleared by surgery for dc. f/u rmg and surgery as directed. rted prn. med sper med rec Referrals: Mark Anthony Shen MD [Staff Provider] -
--- NOTE | 2017-11-27 14:51 | OP ---
PROCEDURE DATE: 11/26/2017 PREOPERATIVE DIAGNOSIS: Acute appendicitis. POSTOPERATIVE DIAGNOSIS: Acute appendicitis. PROCEDURE: Laparoscopic appendectomy. SURGEON: Mark Anthony Shen MD TELEPHONE SERVICES SALES REPRESENTATIVE: Aye Adams DO ANESTHESIOLOGIST: Khalif Marques MD ANESTHESIA: General endotracheal intubation. INTRAVENOUS FLUIDS: Crystalloids. ESTIMATED BLOOD LOSS: 5 mL. INTRAOPERATIVE FINDINGS: Acute appendicitis. SPECIMEN: Appendix. BRIEF HISTORY: Mr. Hoffmann is a pleasant 22-year-old gentleman who presented to the hospital complaining of abdominal pain for the duration of two days and upon further investigation on CAT scan, the patient was found to have acute appendicitis as well as elevated white blood cell count . All the risks and benefits of the procedure were explained to the patient and with the patient having a full understanding although the risks and benefits involved, informed consent was obtained. The patient was taken to the operating room for above-stated procedure. DESCRIPTION OF PROCEDURE: The patient was brought into the operating room and placed supine on the operating table. Bilateral Flowtron boots were applied to the patient's lower extremities. After successful induction of anesthesia and successful endotracheal intubation by the anesthesia team, Aguirre catheter was inserted into the patient's urinary bladder. Subsequent to that, the patient's abdomen was shaved and prepped with ChloraPrep stick and draped in a standard surgical fashion. Prior to the beginning of the procedure, time-out was called in the room and everyone in the room were in agreement. Using the Veress needle, the patient's abdomen was entered at the umbilicus, and pneumoperitoneum was achieved with good opening pressures. Once this was accomplished, using 11-blade scalpel knife, approximately 5-mm incision was made in the umbilicus in a longitudinal fashion. Subsequent to that, a 5-mm trocar was introduced into the patient's abdomen. At this point in time, a 5-mm 0-degree scope was introduced into the patient's abdomen. Abdomen was inspected. We immediately were able to visualize the appendix that appeared to be inflamed. Attention was turned to the lower mid abdomen. Using 11-blade scalpel knife, approximately 5-mm incision was made in a transverse fashion. Subsequent to that, another 5-mm trocar was introduced into the patient's abdomen. Then, attention was turned to the left lower quadrant of the patient's abdomen. Using an 11-blade scalpel knife, approximately 1-cm incision was made in a transverse fashion. Subsequent to that, a 12-mm trocar was introduced into the patient's abdomen. At this point in time, using two Wei and Gevarsha graspers, appendix was mobilized and subsequent to that using [place] dissector, a window was created between the appendix and the mesoappendix. The appendix was taken right at the base with a blue load 45-mm Endo HIEN stapler. Subsequent to that, mesoappendix was taken with a cabezas load on the 45-mm Endo HIEN stapler. Once the appendix was completely freed up, EndoCatch bag was introduced into the patient's abdomen, and appendix was placed inside of the bag and the bag was closed. At this point in time, staple line was inspected for hemostasis. Hemostasis was confirmed. At this point in time, a 12-mm trocar together with EndoCatch bag and appendix were removed from the patient's abdomen and passed off to the [facility] as a specimen. Fascial layer at 12-mm trocar site was closed with 1 interrupted 0 Vicryl suture and UR-6 needle. Subsequent to that, the patient's abdomen was fully desufflated. The rest of the trocars were removed from the patient's abdomen, and the skin was closed with a 4-0 Monocryl suture in a running subcuticular fashion. At the end of the procedure, incision sites were infiltrated with Marcaine anesthetic. The patient's abdomen was washed and dried, and Dermabond was applied to the site of the incisions. Aguirre catheter was removed from the patient's urinary bladder. Subsequent to that, the patient was successfully extubated by the anesthesia team, [facility] and taken to the recovery room in a stable condition. At the end of the procedure, all instrument counts, needles and sponges were correct. Mark Anthony Shen MD
== END 2017-11-27 11:37 | disposition home or self-care (01) | DRG 883 ==
LOC: H.ER 14:49 → H.ERHOLD 17:23 → H.MEDSURG1 21:55
PROVIDERS: ADMIT Family Medicine; ATTEND Family Medicine
PROC: 0DTJ4ZZ Resection of Appendix, Percutaneous Endoscopic Approach (ICD-10-PCS; principal; 2017-11-26 18:45)
DX: K35.80 Unspecified acute appendicitis (principal); G43.909 Migraine, unspecified, not intractable, without status migrainosus; J45.909 Unspecified asthma, uncomplicated; J02.9 Acute pharyngitis, unspecified; R30.0 Dysuria; Z94.6 Bone transplant status

== ENCOUNTER 2018-10-04 20:43 | Emergency (ER) | payer MEDICAID ==
[2018-10-04 20:43] VITALS: BMI 25.8
--- NOTE | 2018-10-04 21:24 | ED PDOC ---
HPI: Back Time Seen by Provider: 10/04/18 21:07 Chief Complaint (Nursing): Back Pain Chief Complaint (Provider): back pain History Per: Patient History/Exam Limitations: no limitations Onset/Duration Of Symptoms: Days (since Wednesday ), Persistent Current Symptoms Are (Timing): Still Present Quality Of Discomfort: Aching Severity: Moderate Pain Scale Rating Of: 7 Previous Symptoms: Back Pain Associated Symptoms: None Exacerbating Factor(s): Turning, Movement, Sitting, Standing Additional History Per: Patient Additional Complaint(s): 22 year old male presents to the ED c/o lower back pain, started Wednesday after jumping in [employer] in Wednesday. Patient states he felt sore on Wednesday for the past 2 days pain has worsened now radiating through the left buttocks. Patient reports he is able to control bowel and bladder habits. Upon movement, sitting, standing pain is worse. Patient denies sensations of "pop or crack". Patient states he has not taken anything for the pain. Patient received ambulatory. Patient denies fever, nausea, chills and vomiting. Past Medical History Reviewed: Historical Data, Nursing Documentation, Vital Signs Vital Signs: Last Vital Signs Temp 98.5 F 10/04/18 20:48 Pulse 88 10/04/18 20:48 Resp 16 10/04/18 20:48 BP 135/95 H 10/04/18 20:48 Pulse Ox 99 10/04/18 20:48 Primary Care Provider: FAMILY PROVIDER,NO - Medical History PMH: Asthma, Migraine - Surgical History Surgical History: Appendectomy, Tonsillectomy - Family History Family History: States: Unknown Family Hx - Social History Alcohol: None Drugs: Denies - Immunization History Hx Tetanus Toxoid Vaccination: No Hx Influenza Vaccination: No Hx Pneumococcal Vaccination: No - Home Medications Home Medications: Ambulatory Orders Medication Instructions Recorded Amoxicillin/Clavulanate [Augmentin 1 tab PO DAILY #7 tab 11/27/17 500 MG-125 MG] oxyCODONE/Acetaminophen [Percocet 1 tab PO Q4 PRN #30 tab 11/27/17 5/325 mg Tab] Cyclobenzaprine [Cyclobenzaprine 10 mg PO Q8H PRN #10 tab 10/04/18 HCl] Ibuprofen [Motrin] 600 mg PO Q6H PRN #40 tab 10/04/18 - Allergies Allergies/Adverse Reactions: Allergies Allergy/AdvReac Type Severity Reaction Status Date / Time No Known Allergies Allergy Verified 10/04/18 20:47 Review of Systems ROS Statement: Except As Marked, All Systems Reviewed And Found Negative Constitutional: Negative for: Fever, Chills, Sweats, Weakness, Malaise Eyes: Negative for: Pain, Vision Change, Conjunctivae Inflammation, Eyelid Inflammation Respiratory: Negative for: Cough, SOB with Exertion, Wheezing Gastrointestinal: Negative for: Nausea, Vomiting, Abdominal Pain, Diarrhea Musculoskeletal: Positive for: Back Pain (lower back ) Physical Exam - Reviewed Nursing Documentation Reviewed: Yes Vital Signs Reviewed: Yes - Physical Exam Appears: Positive for: Well, Non-toxic, No Acute Distress Head Exam: Positive for: ATRAUMATIC, NORMAL INSPECTION, NORMOCEPHALIC Skin: Positive for: Normal Color, Warm, DRY Eye Exam: Positive for: Normal appearance ENT: Positive for: Normal ENT Inspection Neck: Positive for: Normal, Painless ROM, Supple Cardiovascular/Chest: Positive for: Regular Rate, Rhythm Respiratory: Positive for: CNT, Normal Breath Sounds Pulses-Dorsalis Pedis (L): 2+ Pulses-Dorsalis Pedis (R): 2+ Gastrointestinal/Abdominal: Positive for: Normal Exam, Soft Back: Positive for: Normal Inspection, Vertebral Tenderness (lumbar spine ), Decreased ROM (due to pain), Muscle Spasm, Other (upon bilat leg raises lower back pain worsens ). Negative for: L CVA Tenderness, R CVA Tenderness Extremity: Positive for: Normal ROM, Capillary Refill (<2 secs). Negative for: Deformity, Swelling Neurological/Psych: Positive for: Awake, Alert, Normal Tone, Oriented - ECG O2 Sat by Pulse Oximetry: 99 Medical Decision Making Medical Decision Making: --Toradol --Flexeril --Re-eval 10:25 Upon re-assessment patient found to laying on abdomen, on face time with girl friend, smiling and talking. Patient states he continues to be in pain, difficulty with movement. Patient states he is not driving tonight he will be picked-up. Patient to be given dose of tramadol. and will be re-evaluated. 23:34 On re-eval patient states he does not feel better. Continues in severe pain with movement. Patient needed assistance getting up from bed. Patient for CT lumbar spine. Patient endorsed to Aye Butler to follow-up on ct results. Disposition - Clinical Impression Clinical Impression: Acute back pain - Patient ED Disposition Is Patient to be Admitted: No Counseled Patient/Family Regarding: Diagnosis, Rx Given - Disposition Disposition: Routine/Home Disposition Time: 23:30 Condition: STABLE Prescriptions: Cyclobenzaprine [Cyclobenzaprine HCl] 10 mg PO Q8H PRN #10 tab PRN Reason: Muscle Spasm Ibuprofen [Motrin] 600 mg PO Q6H PRN #40 tab PRN Reason: Pain, Moderate (4-7) Forms: [employer] (Arabic) Patient Signed Over To: Aye Weber Handoff Comments: follow-up on CT results. - POA Present On Arrival: None
[2018-10-05 00:20] VITALS: BP 114/69; PULSE 60; RESP 18; TEMP 98.2; O2SAT 98
--- NOTE | 2018-10-05 00:58 | ED PDOC ---
- ECG O2 Sat by Pulse Oximetry: 98 - Progress ED Course And Treament: Case endorsed to health technical writer from [facility] pending CT, re-eval EXAM: CT Lumbar Spine without IV contrast. CLINICAL HISTORY: Lower back pain TECHNIQUE: Axial computed tomography images of the lumbar spine without intravenous cont rast. Sagittal and coronal reformatted images were generated. 487.78 mGy-cm COMPARISON: None provided. FINDINGS: ALIGNMENT: There is straightening of the lumbar lordosis. DISCS/DEGENERATIVE CHANGES: T12/L1: No significant central canal or neural foraminal stenosis. There are mild diffuse disc bulges at L1-L2, L2-L3, L3-L4, L4-L5. There is moderate diffuse disc bulge at L5-S1. L2/L3: No significant central canal or neural foraminal stenosis. L3/4: No significant central canal or neural foraminal stenosis. L4/5: No significant central canal or neural foraminal stenosis. L5/S1: No significant central canal or neural foraminal stenosis. BONES: No evidence for acute fracture or subluxation in the lumbar spine. If more detailed evaluation is needed, recommend MRI of the lumbar spine. SOFT TISSUES: The soft tissues are unremarkable. MISCELLANEOUS: No evidence for high-grade central canal or high-grade neuroforaminal stenoses. IMPRESSION: 1. There is straightening of the lumbar lordosis. 2. There are mild diffuse disc bulges at L1-L2, L2-L3, L3-L4, L4-L5. There is moderate diffuse disc bulge at L5-S1. 3. No evidence for acute fracture or subluxation in the lumbar spine. 4. No evidence for high-grade central canal or high-grade neuroforaminal stenoses. 5. If more detailed evaluation is needed, recommend MRI of the lumbar spine. Patient resting comfortably on re-eval Patient educated on findings, discharged with rx Naproxen, Flexeril, Tramadol, Lidoderm Advised follow up PMD for ancillary specialist referral Rest, warm compresses Return precautions given Disposition - Clinical Impression Clinical Impression: Acute back pain, Bulging lumbar disc - POA Present On Arrival: None - Disposition Disposition: Routine/Home Disposition Time: 00:58 Condition: IMPROVED Prescriptions: Cyclobenzaprine [Cyclobenzaprine HCl] 10 mg PO BID PRN #14 tab PRN Reason: Muscle Spasm Lidocaine 5% [Lidoderm] 1 patch TOP DAILY PRN #7 patch PRN Reason: Pain, Moderate (4-7) Naproxen [Naprosyn] 500 mg PO Q12 PRN #20 tablet PRN Reason: Pain, Moderate (4-7) traMADol [Ultram] 50 mg PO Q8 PRN #12 tab PRN Reason: Pain, Severe (8-10) Instructions: Herniated Disc, Low Back Pain in Adults Forms: [facility] (Kyrgyz), [facility] ED School/Work Excuse
--- NOTE | 2018-10-05 12:07 | CT ---
Date of service: 10/04/2018 PROCEDURE: CT Lumbar Spine without contrast HISTORY: Low back pain. COMPARISON: Comparison made with CT scan abdomen pelvis 11/26/2017 which image the lumbar spine in 3 planes. TECHNIQUE: Axial computed tomography images were obtained of the lumbar spine without the use of intravenous contrast. Coronal and sagittal reformatted images were created and reviewed. Radiation dose: Total exam DLP = 487.78 mGy-cm. This CT exam was performed using one or more of the following dose reduction techniques: Automated exposure control, adjustment of the mA and/or kV according to patient size, and/or use of iterative reconstruction technique. FINDINGS: VERTEBRAE: No acute compression fractures nor retropulsed fragments. Vertebral bodies exhibit normal stature. Vertebral bodies and facets normally aligned. DISCS/SPINAL CANAL/NEURAL FORAMINA: Disc space heights are maintained. There are no disc herniations nor significant disc bulges. No significant facet arthropathy. The overall central bony canal and exit foramina appear adequate PARASPINAL SOFT TISSUES: Paraspinal soft tissues unremarkable OTHER FINDINGS: None. IMPRESSION: No evidence of acute fractures. No significant degenerative spondylosis.
== END 2018-10-05 01:10 | disposition home or self-care (01) ==
LOC: H.ER 20:43
DX: M54.9 Dorsalgia, unspecified (principal); M51.26 Other intervertebral disc displacement, lumbar region
CPT/HCPCS: 72131; 96372; 99284; J1885